=== PATIENT | male | born 1975 | race African-American/Black ===

== ENCOUNTER 2025-04-17 00:56 | Emergency (ER) | payer OTHER, BC, SELFPAY ==
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
[2025-04-17 01:01] VITALS: BP 162/103; RESP 20; O2SAT 95
[2025-04-17 01:20] VITALS: BP 157/80; PULSE 77; RESP 16; TEMP 36.5; O2SAT 100
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
[2025-04-17] MEDS: LIDOCAINE 5% PATCH 1 PATCH TRANSDERM (02:04)
[2025-04-17] MEDS: KETOROLAC 30 MG/ML VIAL (*BKC) IM (02:05)
[2025-04-17 05:07] VITALS: BP 140/77; PULSE 66; RESP 16; O2SAT 99
== END 2025-04-17 05:08 | disposition home or self-care (01) ==
PROVIDERS: Emergency Provider Student in an Organized Health Care Education/Training Program
DX: M54.50 Low back pain, unspecified (principal); M54.2 Cervicalgia; V40.0XXA Car driver injured in collision with pedestrian or animal in nontraffic accident, initial encounter
CPT/HCPCS: 72125; 72128; 72131; 96372; 99284; A9270; J1885